=== PATIENT | male | born 1965 | race Caucasian/White ===

== ENCOUNTER → 2024-05-03 06:14 | Day surgery (SDC) | payer OTHER, SELFPAY ==
[2024-05-03 08:27] LABS: Glucose - Point of Care 113 mg/dl (70-99)
== END ==
LOC: GI 06:14
PROVIDERS: ATTENDING PHYSICIAN Internal Medicine Gastroenterology
DX: Z12.11 Encounter for screening for malignant neoplasm of colon (principal); K57.30 Diverticulosis of large intestine without perforation or abscess without bleeding; K64.8 Other hemorrhoids; K21.00 Gastro-esophageal reflux disease with esophagitis, without bleeding; R12 Heartburn; Z83.719 Family history of colon polyps, unspecified
CPT/HCPCS: 43235; G0105; 82962

== ENCOUNTER → 2024-08-13 09:09 | Outpatient (REF) | payer OTHER, SELFPAY | LOC: HWRAD 09:09 | PROVIDERS: ATTENDING PHYSICIAN Internal Medicine Gastroenterology; FAMILY PHYSICIAN Family Medicine | DX: R79.89 Other specified abnormal findings of blood chemistry (principal) | CPT/HCPCS: 76700 ==